=== PATIENT | male | born 1945 | race African-American/Black ===

== ENCOUNTER → 2016-11-05 | Outpatient (CLI) | payer MEDICARE, MEDICAID ==
[~2016-11-05] MED LIST: HYDROCODONE; MELO-106
== END | disposition home or self-care (01) ==
LOC: RAD 11:38
PROVIDERS: ATTEND Specialist
DX: M25.552 Pain in left hip (principal)
CPT/HCPCS: 71020; 73502

== ENCOUNTER → 2017-07-14 | Outpatient (CLI) | payer MEDICARE, MEDICAID | END | disposition home or self-care (01) | LOC: RAD 10:58 | PROVIDERS: ATTEND Specialist | DX: M19.012 Primary osteoarthritis, left shoulder (principal); M19.011 Primary osteoarthritis, right shoulder; J44.9 Chronic obstructive pulmonary disease, unspecified; Z87.891 Personal history of nicotine dependence | CPT/HCPCS: 73030 ==

== ENCOUNTER 2018-06-21 08:48 | Emergency (ER) | payer MEDICARE, MEDICAID ==
[~2018-06-21] VITALS: Ht 172.7 cm; Wt 75.0 kg
[2018-06-21 08:51] VITALS: BP 122/60
== END 2018-06-21 11:06 | disposition home or self-care (01) ==
LOC: ER 08:48
DX: J02.9 Acute pharyngitis, unspecified (principal); F12.10 Cannabis abuse, uncomplicated; E78.00 Pure hypercholesterolemia, unspecified; Z86.79 Personal history of other diseases of the circulatory system
CPT/HCPCS: 99283

== ENCOUNTER 2018-07-14 14:02 | Emergency (ER) | payer MEDICARE, MEDICAID ==
[~2018-07-14] VITALS: Ht 172.7 cm; Wt 80.0 kg
[2018-07-14] MEDS ORDERED: METHYLPREDNISOLONE SOD SUCC 125 MG/2 ML VIAL IM STA (17:49)
[2018-07-14] MEDS ORDERED: DIPHENHYDRAMINE 25MG CAPSULE PO ONE (18:00)
[2018-07-14 18:23] VITALS: BP 148/64
== END 2018-07-14 18:25 | disposition home or self-care (01) ==
LOC: ER 14:02
DX: L50.0 Allergic urticaria (principal)
CPT/HCPCS: 96372; 99283; J2930; Q0163

== ENCOUNTER → 2021-04-10 | Outpatient (CLI) | payer MEDICARE, MEDICAID ==
[~2021-04-10] MED LIST changes: +AMLO5TAB88 MT; +ASPI-1497 PO; +CYCL10TA7 MT; +GABA-533 MT; +OXYC-105 MT; +TAMS-11 PO
== END | disposition home or self-care (01) ==
LOC: LAB 10:57
PROVIDERS: ATTEND Surgery Vascular Surgery
DX: Z01.812 Encounter for preprocedural laboratory examination (principal); Z20.822 Contact with and (suspected) exposure to COVID-19; I25.10 Atherosclerotic heart disease of native coronary artery without angina pectoris
CPT/HCPCS: 87426

== ENCOUNTER 2021-04-11 09:44 | Inpatient (IN) | payer MEDICARE, MEDICAID ==
[2021-04-11] VITALS (50 sets, daily range): BP systolic 124–214; BP diastolic 44–107
[~2021-04-11] VITALS: Ht 172.7 cm; Wt 79.4 kg
[~2021-04-11 09:44] MED LIST changes: -HYDROCODONE; -MELO-106; +NICARDIPINE 40 MG/200 ML PREMIX 200 ML IV PRN; +NICARDIPINE 50 MG in SODIUM CHLORIDE 0.9% 230 ML IV SCH
[2021-04-11] MEDS ORDERED: SODIUM CHLORIDE 0.9% 1,000 ML IV SCH ×2 (10:00→13:15)
[2021-04-11 10:25] LABS: BASOPHILS % 1.3 % (0.0-2.0); EOSINOPHILS % 4.3 % (0.0-5.0); HEMATOCRIT. 43.2 % (42.0-52.0); HEMOGLOBIN. 14.4 g/dL (14.0-18.0); MEAN CORPUSCULAR HEMOGLOBIN 29.4 pg (28.0-32.0); MEAN CORPUSCULAR VOLUME 88.1 fL (80.0-94.0); MEAN PLATELET VOLUME 8.8 fl (7.4-10.4); MONOCYTES % 8.1 % (2.0-8.0); NEUTROPHILS % 46.3 % (40.0-76.0); PLATELET 209 x1000/uL (130-400); RED BLOOD CELL COUNT 4.91 mill/uL (4.7-6.1); RED CELL DISTRIBUTION WIDTH 14.6 % (11.6-14.6)
[2021-04-11 10:31] LABS: CHLORIDE 110 mEq/L (98-107)
[2021-04-11 10:45] LABS: INR 1.1; PARTIAL THROMBOPLASTIN TIME 27.5 sec (23.4-31.0); PROTHROMBIN TIME 11.3 sec (9.6-11.0)
[2021-04-11] MEDS ORDERED: NICARDIPINE 40MG/200ML PREMIX 200 ML IV PRN (11:45)
[2021-04-11] MEDS ORDERED: MORPHINE SULFATE 4 MG/ML CPJ (NOT FOR IM USE) IV PRN (11:45)
[2021-04-11] MEDS ORDERED: PROPOFOL 200MG/20ML VIAL IV ONE (12:12)
[2021-04-11] MEDS ORDERED: ROCURONIUM BROMIDE 10MG/ML VIAL 5ML IV ONE (12:12)
[2021-04-11] MEDS ORDERED: FENTANYL CITRATE/PF 50MCG/ML 2ML VIAL ONE (12:12)
[2021-04-11] MEDS ORDERED: MIDAZOLAM HCL 2 MG/2 ML VIAL ONE (12:12)
[2021-04-11] MEDS ORDERED: ONDANSETRON HCL 4MG/2ML INJ IV PRN (13:15)
[2021-04-11] MEDS ORDERED: MEPERIDINE HCL/PF 25MG/ML CPJ IV PRN (13:15)
[2021-04-11] MEDS ORDERED: FENTANYL CITRATE/PF 50MCG/ML 2ML VIAL IV PRN (13:15)
[2021-04-11] MEDS ORDERED: HYDROMORPHONE HCL/PF 2MG/ML CPJ IV PRN (13:15)
[2021-04-11] MEDS ORDERED: NEOSTIGMINE METHYLSULFATE 1MG/ML 10 ML VIAL ONE (13:19)
[2021-04-11] MEDS ORDERED: GLYCOPYRROLATE 0.2 MG/ML 2ML VIAL ONE (13:19)
[2021-04-11] MEDS ORDERED: DEXAMETHASONE 4MG/ML 1ML VIAL ONE (13:27)
[2021-04-11] MEDS ORDERED: HEPARIN 1000 UNITS/ML 10ML ONE (13:27)
[2021-04-11] MEDS ORDERED: EPHEDRINE SULFATE 50MG/ML VIAL ONE (13:27)
[2021-04-11] MEDS ORDERED: LIDOCAINE HCL 1% 10 MG/ML 10ML VIAL ONE (13:27)
[2021-04-11] MEDS ORDERED: METOCLOPRAMIDE HCL 10MG/2ML VIAL ONE (13:27)
[2021-04-11] MEDS ORDERED: LABETALOL HCL 5MG/ML VIAL 20ML IV ONE (13:36)
[2021-04-11] MEDS ORDERED: NALOXONE HCL 0.4MG/ML VIAL IV PRN (14:30)
[2021-04-11] MEDS: NICARDIPINE 50 MG in SODIUM CHLORIDE 0.9% 230 ML IV PRN (17:39)
[2021-04-11] MEDS: TAMSULOSIN HCL 0.4MG SR CAPSULE PO SCH (20:18)
[2021-04-11] MEDS: MORPHINE SULFATE 2 MG/ML CPJ (NOT FOR IM USE) IV PRN (22:17)
[2021-04-11] MEDS: AMLODIPINE 5MG TABLET PO SCH (22:41)
[2021-04-12] VITALS (45 sets, daily range): BP systolic 82–184; BP diastolic 40–100
[2021-04-12] MEDS ORDERED: ACETAMINOPHEN 325MG TABLET PO PRN (00:15)
[2021-04-12] MEDS: MORPHINE SULFATE 2 MG/ML CPJ (NOT FOR IM USE) IV PRN (04:59)
[2021-04-12 06:16] LABS: BASOPHILS % 0.2 % (0.0-2.0); HEMATOCRIT. 40.1 % (42.0-52.0); HEMOGLOBIN. 13.4 g/dL (14.0-18.0); LYMPHOCYTES % 16.5 % (20.0-50.0); MEAN CORPUSCULAR HEMOGLOBIN 29.3 pg (28.0-32.0); MEAN CORPUSCULAR VOLUME 87.7 fL (80.0-94.0); MEAN PLATELET VOLUME 9.8 fl (7.4-10.4); MONOCYTES % 5.8 % (2.0-8.0); NEUTROPHILS % 77.5 % (40.0-76.0); PLATELET 203 x1000/uL (130-400); RED BLOOD CELL COUNT 4.57 mill/uL (4.7-6.1); RED CELL DISTRIBUTION WIDTH 14.9 % (11.6-14.6)
[2021-04-12 06:22] LABS: CHLORIDE 109 mEq/L (98-107)
[2021-04-12] MEDS: TAMSULOSIN HCL 0.4MG SR CAPSULE PO SCH (08:42)
[2021-04-12] MEDS: AMLODIPINE 5MG TABLET PO SCH (08:42)
[2021-04-12] MEDS: NICARDIPINE 50 MG in SODIUM CHLORIDE 0.9% 230 ML IV PRN (16:25)
== END 2021-04-12 16:15 | disposition home or self-care (01) | DRG 39 ==
LOC: OR 09:44 → CVICU 09:45
PROVIDERS: ADMIT Surgery Vascular Surgery; ATTEND Surgery Vascular Surgery
PROC: 03CH0ZZ Extirpation of Matter from Right Common Carotid Artery, Open Approach (ICD-10-PCS; principal; 2021-04-11)
PROC: 03CK0ZZ Extirpation of Matter from Right Internal Carotid Artery, Open Approach (ICD-10-PCS; 2021-04-11)
DX: I65.21 Occlusion and stenosis of right carotid artery (principal); G62.9 Polyneuropathy, unspecified; G89.29 Other chronic pain; I10 Essential (primary) hypertension; I25.10 Atherosclerotic heart disease of native coronary artery without angina pectoris; N40.0 Benign prostatic hyperplasia without lower urinary tract symptoms; M51.36 Other intervertebral disc degeneration, lumbar region; M54.50 Low back pain, unspecified; I73.9 Peripheral vascular disease, unspecified; Z95.1 Presence of aortocoronary bypass graft
CPT/HCPCS: 36415; 80048; 85025; 87426; 88304; 88311; 93005; J1100; J1170; J1644; J2250; J2270; J2405; J2704; J2710; J2765; J3010; J3490; J7042; J7050